=== PATIENT | female | born 1980 | race African-American/Black ===

== ENCOUNTER 2020-06-18 00:37 | Emergency (ER) | payer MEDICAID ==
[~2020-06-18] VITALS: Ht 177.8 cm; Wt 82.0 kg
[2020-06-18 06:17] VITALS: BP 137/86
== END 2020-06-18 06:18 | disposition home or self-care (01) ==
LOC: ER 00:37
DX: F41.9 Anxiety disorder, unspecified (principal); Z59.0 Homelessness; F20.9 Schizophrenia, unspecified
CPT/HCPCS: 99283